=== PATIENT | female | born 1975 | race Hispanic/Latino ===

== ENCOUNTER 2018-04-16 13:33 | Outpatient (CLI) | payer SELFPAY ==
--- NOTE | 2018-04-20 11:18 | MMO ---
BILATERAL DIGITAL SCREENING MAMMOGRAMS: Date: 04/16/18 This patient's mammogram was interpreted with the assistance of computer-aided detection. Comparison made with exams of 09/18/15 and 01/17/17. FINDINGS: The breast tissue is heterogeneously dense, which may reduce the sensitivity of mammography. No suspi cious masses or calcifications are identified. IMPRESSION: BIRADS 1: Negative Return to annual mammographic screening. POS: MAGED
== END 2018-04-16 13:34 | disposition home or self-care (01) ==
LOC: SCSMAMMO 13:33
PROVIDERS: ATTEND Physician Assistant
DX: Z12.31 Encounter for screening mammogram for malignant neoplasm of breast (principal)
CPT/HCPCS: 77067

== ENCOUNTER 2020-09-11 21:32 | Observation (INO) | payer SELFPAY ==
[2020-09-12 01:34] VITALS: BMI 27.6
[2020-09-12] MEDS ORDERED: Acetaminophen 650 MG Suppository PR PRN (02:12)
[2020-09-12] MEDS ORDERED: Acetaminophen 325 MG TAB PO PRN (02:12)
[2020-09-12] MEDS ORDERED: hydrALAZINE 20 MG/ML VIAL SLOW IVP PRN (02:12)
[2020-09-12] MEDS ORDERED: HYDROcodone/Acetaminophen 5/325 mg Tablet PO PRN (02:12)
[2020-09-12] MEDS ORDERED: Calcium Carbonate 500 MG ChewTAB PO PRN (02:12)
--- NOTE | 2020-09-12 02:22 | PDOC.HHP ---
Hospitalist HPI - History of Present Illness slur speech R sided face weakness numbes and pain History of Present Illness: Case of an 44y/o female with no pmhx who present to [facility] due to pain weakness and numbness of the R face. patient refers she was on her usual state of health until 4 days ago when symptoms started, they have been constant pain is described as stabbing electrical pain. she reports no difficulty swalling but chewing muscles seems to be affected and has an asymmetric smile. patient denies any weakness or numbness of the extremities. Hospitalist ROS - Review of Systems All other systems reviewed; all pertinent +/- noted in HPI/Subj Hospitalist History - Past Surgical History Past Surgical History: reports: - Family History Family History: reports: cardiac disorder - Social History Smoking Status: Never smoker Alcohol: reports: None Drugs: reports: none - Exam General Appearance: NAD, awake alert Eye: PERRL, anicteric sclera ENT: normocephalic atraumatic, no oropharyngeal lesions, moist mucosa Neck: supple, symmetric, no JVD, no thyromegaly Heart: RRR, no murmur, no gallops, no rubs Respiratory: CTAB, no wheezes, no rales, no ronchi Gastrointestinal: soft, non-tender, non-distended, normal bowel sounds, no palpable masses Extremities: no cyanosis, no clubbing, no edema Skin: normal turgor, no lesions, no rashes Neurological - other findings: R trigeminal distribution w weakness and numbness Musculoskeletal: normal tone, normal strength, no muscle wasting Psychiatric: normal affect, normal behavior, A&O x 3 Hospitalist H&P A/P - Problem (1) CVA (cerebral vascular accident) Code(s): I63.9 - CEREBRAL INFARCTION, UNSPECIFIED Status: Acute (2) Trigeminal neuralgia of right side of face Code(s): G50.0 - TRIGEMINAL NEURALGIA Status: Acute - Plan Plan: Case of an 44y/o female with the stated pmhx who present with r sided face weakness numbness and pain cva r/o - ct head negative - cta negative - will get mri - 2decho - neurology consult - started on secondary prophylaxis with asa + statin - evaluated modifiable risk factors with lipid panel + A1c - avoid hypotonic fluids - permissive hypertension trigeminal neuralgia of R sided - presentation more consistent with neuralgia than cva - get MRI, could be presenting symptom of MS - neurology consult - if cva r/o consider carbamazepime
[2020-09-12] MEDS ORDERED: Aspirin 325 mg Enteric Coated Tablet PO SCH ×2 (02:30→09:00)
[2020-09-12 04:11] LABS: Hemoglobin A1c 5.2 % (4.0-6.0)
[2020-09-12 04:34] LABS: ALT (SGPT) 18 U/L (8-55); AST (SGOT) 19 U/L (5-34); Albumin 3.8 g/dL (3.5-5.0); Alkaline Phosphatase 69 U/L (40-110); Anion Gap 14 mmol/L (10-20); BUN (Urea Nitrogen) 13 mg/dL (7.0-18.7); Bilirubin, Total 0.9 mg/dL (0.2-1.2); Calc. Creatinine Clearance 96 mL/min (70-130); Carbon Dioxide 22 mmol/L (22-29); Cardiac Risk 2.8 (Less than 4.5); Chloride 107 mmol/L (98-107); Cholesterol 160 mg/dl (< 200 Desired); Estimated GFR-MDRD 84; Globulin 3.4 g/dL (2.4-3.5); Glucose 104 mg/dL (70-105); HDL Cholesterol 58 mg/dL (>60 Neg Risk); LDL Cholesterol, Calculated 90 mg/dL; Protein, Total 7.2 g/dL (6.0-8.3); Sodium 139 mmol/L (136-145); Triglycerides 62 mg/dL (Less than 150)
[2020-09-12 04:40] LABS: Band 3 % (5-11); Eosinophils 6 % (0-10); Hemoglobin 11.1 g/dL (12.0-16.0); Lymphocytes 49 % (21-51); MDiff Complete? YES; Mean Corpuscular Hemoglobin 28.2 pg (27.0-31.0); Mean Corpuscular Volume 85.4 fL (78.0-98.0); Mean Platelet Volume 7.7 fL (7.4-10.4); Monocytes 6 % (0-10); Neutrophil 35 % (42-75); Platelet Count 288 thou/uL (130-400); RBC Distribution Width 13.1 % (11.5-14.5); Red Blood Cell (RBC) Count 3.92 mill/uL (4.20-5.40); White Blood Cell (WBC) Count 7.4 thou/uL (4.8-10.8)
--- NOTE | 2020-09-12 08:51 | MRI ---
MRI BRAIN WITHOUT CONTRAST: HISTORY: Paresthesia of the right side of the face CORRELATION: CT scan from 09/11/2020. FINDINGS: No restricted diffusion is seen. There are few foci of T2 prolongation in the periventricular white m atter, consistent with mild chronic small vessel ischemic disease. The ventricular size is appropriate and the basilar cisterns are patent. No evidence of acute infarct, hemorrhage, midline shift or abnormal extra-axial fluid collections is seen. The visualized paranasal sinuses and mastoid air cells are well-aerated. IMPRESSION: No evidence of acute intracranial process.
[2020-09-12] MEDS ORDERED: Enoxaparin Sodium 40 MG/0.4 ML SYRINGE SC SCH (09:00)
[2020-09-12 11:36] LABS: SARS-CoV-2 MS2 Positive; SARS-CoV-2 N Gene Negative; SARS-CoV-2 S Gene Negative; SARS-CoV-2 by NAA Not Detected (NotDetected); SARS-CoV-2 orf1ab Negative
--- NOTE | 2020-09-12 12:53 | PDOC.BPN ---
- Brief Progress Note Encounter Date: 09/12/20 Encounter Time: 12:52 This is a 44-year-old woman who presented to the hospital with right-sided facial numbness and weakness. She was admitted due to concern for an acute stroke. Since being admitted her symptoms are completely resolved. Her work-up so far has been unremarkable with a negative CT and a negative MRI. Neurology evaluation is pending. She otherwise is doing really well and I suspect she will be discharged home by the end of today unless if neurology had other recommendations.
[2020-09-12 15:52] VITALS: BP 108/71; TEMP 98.3
--- NOTE | 2020-09-12 17:28 | PDOC.DS.DS ---
Provider - Provider Date of Admission: 09/11/20 23:09 Date of Discharge: 09/12/20 Admitting Provider: Fabrice Marlow Consultations: Neurology Primary Care Physician: JULIA Parnell Course - Hospital Course Hospital Course: This is a 44-year-old woman who presented to the hospital with a right-sided facial numbness and pain. This was associated with weakness. She was worried she was having a stroke and she presented to the hospital for an evaluation. She did rule out for stroke with negative CT and MRI. She was seen by neurology during this visit. Her symptoms are completely resolved by the time that we saw her today. She has done very well and is discharged home today. Resuscitation Status: 09/12/20 02:12 Resuscitation Status Routine Resuscitation Status: FULL: Full Resuscitation - Labs Lab Results: 09/12/20 03:54 09/12/20 03:54 Abnormal Lab Results - Last 48 hrs 09/12/20 03:54: Albumin/Globulin Ratio 1.1 L 09/12/20 03:54: RBC 3.92 L, Hgb 11.1 L, Hct 33.5 L, Neutrophils % (Manual) 35 L, Band Neuts % (Manual) 3 L - Physical Exam Vitals: Vital Signs (12 hours) Temp Pulse Pulse Pulse Resp BP BP 09/12/20 15:51 98.3 F 82 14 09/12/20 11:18 97.8 F 80 16 09/12/20 10:26 89 90 109/66 121/68 09/12/20 09:06 84 80 108/66 122/73 09/12/20 08:00 98.2 F 84 16 BP Pulse Ox 09/12/20 15:51 108/71 98 09/12/20 11:18 102/65 97 09/12/20 10:26 09/12/20 09:06 09/12/20 08:00 104/63 98 Weight Weight 141 lb 12.8 oz Physical Exam: The patient was seen and examined on the day of discharge. Problem - Discharge Plan Assessment: Patient is clinically stable for discharge home today. Plan - Discharge Medications Prescriptions: Ketorolac Tromethamine [Toradol] 10 mg PO Q6HR PRN #30 tab PRN Reason: Pain Pantoprazole Sodium [Protonix] 20 mg PO DAILY #30 tablet.dr Hagan Medications: Medication Instructions Recorded Confirmed Type Ketorolac Tromethamine [Toradol] 10 mg PO Q6HR PRN #30 tab 09/12/20 Rx Pantoprazole Sodium [Protonix] 20 mg PO DAILY #30 tablet. 09/12/20 Rx Allergies: No Known Allergies Allergy (Verified 09/12/20 01:48) - Discharge Instructions Activity:: Activity as Tolerated Nourishment:: Heart Healthy Diet Therapies:: Not Applicable Equipment/Supplies:: Not Applicable - Follow up Plan Referrals: Orquidea Contreras PA [Primary Care Provider] - 7 Days (CALL OFFICE TO SCHEDULE APPOINTMENT.) Jenaro Dowling MD [Active] - 2-3 Weeks (CALL OFFICE TO SCHEDULE APPOINTMENT.) Disposition: HOME Quality - Care Measures CORE MEASURES:: N/A
--- NOTE | 2020-09-12 20:41 | CON ---
DATE OF CONSULTATION: 09/12/2020 CONSULTING PHYSICIAN: Hospitalist Service. IMPRESSION: Right Murguia palsy. PLAN: 1. Prednisone 20 mg per day for seven days. 2. Toradol mg q.6 hours as needed for pain for seven days. HISTORY OF PRESENT ILLNESS: Ms. Jj is a 44-year-old female, developed pain on the right side of the neck and posterior head region. She then noted some weakness on the right side of her face. She came in through the emergency room for evaluation. Initial CT and CT angiograms were both negative. She had an MRI of the brain done, which also was negative. She denies any prodromal illness. She reports the intensity of the pain is somewhat better since admission. She had not had any prodromal trauma or other inciting event. PAST HISTORY: Unremarkable. ALLERGIES: NONE. SOCIAL HISTORY: No tobacco or alcohol. FAMILY HISTORY: Noncontributory. REVIEW OF SYSTEMS: Ten-system review of systems is otherwise negative. PHYSICAL EXAMINATION: VITAL SIGNS: Blood pressure 123/63, pulse 84, respirations 16, and temperature 98.4. HEENT: Pupils equal and reactive. Conjunctivae clear. Oropharynx clear. NECK: Supple. No lymphadenopathy. ABDOMEN: Soft and nontender. SKIN: Clear. EXTREMITIES: No cyanosis or edema. NEUROLOGIC: She was alert and cooperative. Her speech is fluent and clear. She had diminished facial strength on the right side including the forehead, eye closure, and lower face. Sensation was intact to touch. Tongue protruded to the center. Palate elevated to the midline. Motor exam showed good strength bilaterally. She had normal sensory testing in the peripheral areas. Reflexes were symmetric. Gait was normal. EKG showed normal sinus rhythm. SUMMARY: A middle-aged woman with a partial paralysis of the right side of the face consistent with a Murguia palsy. I would be happy to follow up with her if she has any further problems. Job ID: [id number]
[2020-09-12] MEDS ORDERED: Atorvastatin Calcium 40 MG TAB PO SCH (21:00)
== END 2020-09-12 17:20 | disposition home or self-care (01) ==
LOC: ERS 21:32 → 2NO 23:09
PROVIDERS: ADMIT Internal Medicine; ATTEND Hospitalist
DX: G51.0 Bell's palsy (principal); G50.0 Trigeminal neuralgia; Z79.899 Other long term (current) drug therapy; Z20.828 Contact with and (suspected) exposure to other viral communicable diseases
CPT/HCPCS: 36415; 70551; 80053; 80061; 83036; 85007; 85027; 87635; 93306; 96372; G0378; J1650; U0003